=== PATIENT | female | born 1950 | race African-American/Black ===

== ENCOUNTER 2016-09-23 12:06 | Emergency (ER) | payer MEDICARE, MEDICAID | END 2016-09-23 12:26 | disposition home or self-care (01) | LOC: BURERS 12:06 | DX: S86.011A Strain of right Achilles tendon, initial encounter (principal); I10 Essential (primary) hypertension; E11.9 Type 2 diabetes mellitus without complications; X58.XXXA Exposure to other specified factors, initial encounter | CPT/HCPCS: 99283 ==

== ENCOUNTER 2018-08-13 13:11 | Outpatient (CLI) | payer MEDICARE, OTHER ==
--- NOTE | 2018-08-13 18:49 | RAD ---
RIGHT KNEE THREE VIEWS 08/13/18 Comparison is made with a prior study of 03/14/08. Severe osteoarthritis is present as before. The medial joint space narrowing has worsened, the articu lar surfaces, particularly of the medial femoral condyle are a little more irregular and some of the osteophytes are perhaps a little more prominent. No fracture was seen. There is evidence of a joint effusion. Patellofemoral joint arthritis is prominent as well. IMPRESSION: Moderately severe osteoarthritis with some advancement since the prior study. POS: HOME
== END 2018-08-13 13:12 | disposition home or self-care (01) ==
LOC: BURRAD 13:11
PROVIDERS: ATTEND Family Medicine
DX: M25.561 Pain in right knee (principal); G89.29 Other chronic pain; M17.11 Unilateral primary osteoarthritis, right knee

== ENCOUNTER 2020-07-13 11:09 | Outpatient (CLI) | payer MEDICARE, OTHER | END 2020-07-13 11:10 | disposition home or self-care (01) | LOC: BURRAD 11:09 | PROVIDERS: ATTEND Family Medicine | DX: M79.672 Pain in left foot (principal); R60.0 Localized edema ==